=== PATIENT | female | born 1940 | race Caucasian/White ===

== ENCOUNTER → 2016-04-02 | Outpatient (CLI) | payer BC ==
[2016-04-02 09:01] LABS: BLOOD UREA NITROGEN 15 mg/dl (7-18); BUN/CREATININE RATIO 20.6 (10-20); CALCIUM 8.9 mg/dl (8.5-10.1); CARBON DIOXIDE 27 mmol/L (21-32); CHLORIDE 107 mmol/L (98-107); CREATININE 0.72 mg/dl (0.60-1.20); GLUCOSE 91 mg/dl (70-99); POTASSIUM 4.4 mmol/L (3.5-5.1); SODIUM 143 mmol/L (136-145)
[2016-04-02 09:43] LABS: ESTIMATED AVERAGE GLUCOSE 128 mg/dl; HA1C FLAG Normal (Normal)
== END | disposition home or self-care (01) ==
LOC: C.LABFOXMH 08:28
PROVIDERS: ATTEND Internal Medicine
DX: E11.9 Type 2 diabetes mellitus without complications (principal); I10 Essential (primary) hypertension

== ENCOUNTER → 2016-04-22 | Outpatient (CLI) | payer BC | END | disposition home or self-care (01) | LOC: C.MAMM 14:28 | PROVIDERS: ATTEND Internal Medicine | DX: Z78.0 Asymptomatic menopausal state (principal) ==

== ENCOUNTER → 2016-06-04 | Outpatient (CLI) | payer BC ==
--- NOTE | 2016-06-04 12:47 | MAMMOGRAPHY REPORT ---
BILATERAL DIGITAL SCREENING MAMMOGRAM WITH CAD: 06/04/2016 CLINICAL HISTORY: Routine screening. Patient has no complaints. TECHNIQUE: Bilateral CC, MLO and repeat left CC views were obtained. Current study was also evaluat ed with a Computer Aided Detection (CAD) system. COMPARISON: Comparison is made to exams dated: 05/31/2015 mammogram, 05/30/2014 mammogram, 05/27/2013 [facility] mogram, 05/26/2012 mammogram, 05/26/2011 mammogram, and 05/21/2010 mammogram - [facility] er. BREAST COMPOSITION: There are scattered areas of fibroglandular density in both breasts. FINDINGS: There are a few stable benign-appearing microcalcifications in the breasts. No new suspic ious mass, architectural distortion or cluster of microcalcifications is seen. IMPRESSION: ACR BI-RADS CATEGORY 1: NEGATIVE There is no mammographic evidence of malignancy. A 1 year screening mammogram is recommended. The p atient will receive written notification of the results. Approximately 10% of breast cancers are not detected with mammography. A negative mammographic repor t should not delay biopsy if a clinically suggestive mass is present. Chantale eTrrazas M.D. ay/:06/04/2016 11:21:35 Heel Sorter: Tanna TORREZ(R)(M), [facility] letter sent: Normal 1/2 BI-RADS Code: ACR BI-RADS Category 1: Negative
== END | disposition home or self-care (01) ==
LOC: C.MAMM 09:46
PROVIDERS: ATTEND Internal Medicine
DX: Z12.31 Encounter for screening mammogram for malignant neoplasm of breast (principal)

== ENCOUNTER → 2016-08-01 | Outpatient (CLI) | payer BC ==
[2016-08-01 09:08] LABS: BLOOD UREA NITROGEN 18 mg/dl (7-18); BUN/CREATININE RATIO 20.2 (10-20); CARBON DIOXIDE 28 mmol/L (21-32); CHLORIDE 107 mmol/L (98-107); CHOLESTEROL 146 mg/dl (0-200); CREATININE 0.88 mg/dl (0.60-1.20); GLUCOSE 91 mg/dl (70-99); POTASSIUM 4.4 mmol/L (3.5-5.1); SODIUM 142 mmol/L (136-145); TRIGLYCERIDES 118 mg/dl (0-150); VERY LOW DENSITY LIPOPROT CALC 24 mg/dl
[2016-08-01 09:11] LABS: CHOLESTEROL/HDL RATIO 2.7; HDL CHOLESTEROL 54 mg/dl; LDL CHOLESTEROL CALCULATED 68 mg/dl
[2016-08-01 09:30] LABS: CALCIUM 8.6 mg/dl (8.5-10.1)
[2016-08-01 11:07] LABS: ESTIMATED AVERAGE GLUCOSE 128 mg/dl; HA1C FLAG Normal (Normal)
== END ==
LOC: C.LABFOXMH 08:25
PROVIDERS: ATTEND Internal Medicine
DX: E11.9 Type 2 diabetes mellitus without complications (principal)

== ENCOUNTER → 2016-12-08 | Outpatient (CLI) | payer BC ==
[2016-12-08 10:17] LABS: ESTIMATED AVERAGE GLUCOSE 123 mg/dl; HA1C FLAG Normal (Normal)
== END | disposition home or self-care (01) ==
LOC: C.LABFOXMH 09:26
PROVIDERS: ATTEND Internal Medicine
DX: E11.9 Type 2 diabetes mellitus without complications (principal)

== ENCOUNTER → 2017-04-06 | Outpatient (CLI) | payer BC | END | disposition home or self-care (01) | LOC: C.LABFOXMH 08:12 | PROVIDERS: ATTEND Internal Medicine Hospice and Palliative Medicine | DX: E11.9 Type 2 diabetes mellitus without complications (principal) ==

== ENCOUNTER → 2017-06-08 | Outpatient (CLI) | payer BC ==
--- NOTE | 2017-06-09 07:46 | MAMMOGRAPHY REPORT ---
BILATERAL DIGITAL SCREENING MAMMOGRAM TOMOSYNTHESIS WITH CAD: 06/08/2017 CLINICAL HISTORY: Routine screening. Patient has no complaints. TECHNIQUE: Breast tomosynthesis in addition to standard 2D mammography was performed. Current study was also evaluated with a Computer Aided Detection (CAD) system. COMPARISON: Comparison is made to exams dated: 06/04/2016 mammogram, 05/31/2015 mammogram, 05/30/2014 lynne mogram, 05/27/2013 mammogram, 05/26/2012 mammogram, and 05/26/2011 mammogram - [facility] . BREAST COMPOSITION: There are scattered areas of fibroglandular density in both breasts. FINDINGS: There are scattered and loosely grouped round and punctate microcalcifications bilaterally. No suspicious mass, architectural distortion or cluster of microcalcifications is seen. IMPRESSION: ACR BI-RADS CATEGORY 1: NEGATIVE There is no mammographic evidence of malignancy. A 1 year screening mammogram is recommended. The pa tient will receive written notification of the results. Approximately 10% of breast cancers are not detected with mammography. A negative mammographic report should not delay biopsy if a clinically suggestive mass is present. Chantale Terrazas M.D. ay/:06/08/2017 15:25:55 Public Relations Professional: Meeta TORREZ(Susan)(Zaria)(BD), [facility] letter sent: Normal 1/2 BI-RADS Code: ACR BI-RADS Category 1: Negative
== END | disposition home or self-care (01) ==
LOC: C.MAMM 09:43
PROVIDERS: ATTEND Internal Medicine
DX: Z12.31 Encounter for screening mammogram for malignant neoplasm of breast (principal)